=== PATIENT | male | born 1950 | race Caucasian/White ===

== ENCOUNTER → 2025-10-10 | Emergency (ER) | payer MEDICARE, OTHER ==
[~2025-10-10] MED LIST: HYDROcodone/Acetaminophen 10/325 mg Tablet ONE; HYDROmorphone 0.5 MG/0.5 ML SYRINGE ONE
[2025-10-10 20:33] LABS: #Basophils 0.04 10x3/uL (0.0-0.2); #Eosinophils 0.18 10x3/uL (0.0-0.5); #Monocytes 0.57 10x3/uL (0.0-1.1); #Neutrophils 5.28 10x3/uL (1.5-8.4); %Basophils 0.5 % (0.0-2.0); %Eosinophils 2.2 % (0.0-6.0); %Lymphocytes 25.7 % (18.0-47.0); %Monocytes 7.0 % (0.0-10.0); %Neutrophils 64.4 % (40.0-75.0); Hematocrit 39.2 % (38.8-50.0); Hemoglobin 13.4 g/dL (13.5-17.5); Mean Corpuscular Hemoglobin 31.9 pg (27.0-33.0); Mean Corpuscular Volume 93.3 fL (81.2-95.1); Platelet Count 120 10x3/uL (150-450); Red Blood Cell (RBC) Count 4.20 10x6/uL (4.32-5.72); White Blood Cell (WBC) Count 8.20 10x3/uL (3.5-10.5)
[2025-10-10 20:36] LABS: ALT (SGPT) 20 U/L (Less than 45); AST (SGOT) 33 U/L (11-34); Albumin 3.8 g/dL (3.1-4.5); Alkaline Phosphatase 56 U/L (40-110); Anion Gap 13 mmol/L (10-20); BUN (Urea Nitrogen) 19 mg/dL (8.4-25.7); Bilirubin, Total 0.6 mg/dL (0.3-1.2); Calc. Creatinine Clearance 0 mL/min (70-130); Calcium 8.9 mg/dL (7.8-10.44); Carbon Dioxide 22 mmol/L (23-31); Chloride 107 mmol/L (98-107); Globulin 3.7 g/dL (2.4-3.5); Glucose 164 mg/dL (83-110); Potassium 3.7 mmol/L (3.5-5.1); Sodium 138 mmol/L (136-145)
== END ==
LOC: CSHERS 19:29
DX: S70.11XA Contusion of right thigh, initial encounter (principal); I10 Essential (primary) hypertension; Z79.899 Other long term (current) drug therapy; W16.022A Fall into swimming pool striking bottom causing other injury, initial encounter
CPT/HCPCS: 70450; 72125; 72170; 73502; 73552; 73706; 80053; 85025; J1171; J2060; J2270; 96374; 96375